=== PATIENT | male | born 1990 | race Two or more races ===

== ENCOUNTER 2020-03-16 09:02 | Inpatient (IN) | payer MEDICARE, OTHER ==
[~2020-03-16] VITALS: Ht 170.2 cm; Wt 59.0 kg
--- NOTE | 2020-03-16 09:10 | NUR ---
MIGUEL RA 79 "was en route to Dialysis- Got really SOB-RA sats 70%, placed on nrb o2 sats went up to 98%. vs checked. hooked on monitor. iv access started on r hand 20, blood draw done. sent to lab
[2020-03-16] MEDS ORDERED: FUROSEMIDE 40 MG/4 ML VIAL IV ONE (09:30)
[2020-03-16] MEDS ORDERED: FUROSEMIDE 40 MG/4 ML VIAL ONE (09:40)
[2020-03-16 10:04] LABS: BASOPHILS # (AUTO) 0.1 /CMM (0.0-0.2); EOSINOPHILS % (AUTO) 2.1 % (0.0-6.0); HEMATOCRIT 36 % (39-51); HEMOGLOBIN 11.7 g/dL (13.5-17.5); LYMPHOCYTES # (AUTO) 0.8 /CMM (0.8-4.8); LYMPHOCYTES % (AUTO) 10.2 % (20.0-44.0); MEAN CORPUSCULAR HGB CONC 33 g/dl (31.0-36.0); MEAN CORPUSCULAR VOLUME 92 fL (80-96); MONOCYTES # (AUTO) 0.2 /CMM (0.1-1.30); MONOCYTES % (AUTO) 2.8 % (2.0-12.0); NEUTROPHILS # (AUTO) 6.9 /CMM (1.8-8.9); NEUTROPHILS % (AUTO) 83.9 % (43.0-81.0); PLATELET COUNT (AUTO) 202 /CMM (150-450); RED BLOOD CELL COUNT(AUTO) 3.86 MIL/uL (4.5-6.0); WHITE BLOOD COUNT (AUTO) 8.2 K/uL (4.3-11.0)
--- NOTE | 2020-03-16 10:07 | NUR ---
placed on hi flow o2 60L/100%. rt by bedside pt satting at 97%
[2020-03-16 10:37] LABS: ALANINE AMINOTRANSFERASE 12 U/L (12-78); ALKALINE PHOSPHATASE 102 U/L (46-116); ASPARTATE AMINOTRANSFERASE 21 U/L (15-37); BILIRUBIN,DIRECT 0.2 mg/dL (0.0-0.2); BILIRUBIN,TOTAL 0.9 mg/dL (0.2-1.0); CALCIUM, SERUM 9.2 mg/dL (8.5-10.1); CARBON DIOXIDE 24 mmol/L (21-32); CHLORIDE 97 mmol/L (98-107); GLUCOSE 127 mg/dL (74-106); POTASSIUM 6.1 mmol/L (3.5-5.1); SODIUM SERUM 138 mmol/L (136-145); TOTAL PROTEIN, SERUM 8.1 g/dL (6.4-8.2)
[2020-03-16 10:48] LABS: CREATININE 12.6 mg/dL (0.6-1.3); UREA NITROGEN, BLOOD 90 mg/dL (7-18)
[2020-03-16] MEDS ORDERED: AMLODIPINE BESYLATE 5 MG TABLET ONE (10:55)
[2020-03-16] MEDS ORDERED: SODIUM BICARBONATE SYR 50 MEQ/50 ML DISP.SYRIN IV ONE (11:00)
[2020-03-16] MEDS ORDERED: MAG HYDROX/AL HYDROX/SIMETH 30 ML UDC PO PRN (11:00)
[2020-03-16] MEDS ORDERED: SODIUM POLYSTYRENE SULFONATE 15 G/60 ML BOTTLE PO ONE (11:00)
[2020-03-16] MEDS ORDERED: MAGNESIUM HYDROXIDE 30 ML UDC PO PRN (11:00)
[2020-03-16] MEDS ORDERED: AMLODIPINE BESYLATE 5 MG TABLET PO ONE (11:00)
[2020-03-16] MEDS ORDERED: Z GUARD REMEDY 2 OZ OINT TP PRN (11:00)
[2020-03-16] MEDS ORDERED: DEXTROSE 50%-WATER 50 ML DISP.SYRIN IV ONE (11:00)
[2020-03-16] MEDS ORDERED: HYDROCODONE/APAP 5/325MG TABLET PO PRN (11:00)
[2020-03-16] MEDS ORDERED: DEXAMETHASONE SOD PHOSPHATE 10 MG/ML VIAL IV SCH (11:00)
[2020-03-16] MEDS ORDERED: ACETAMINOPHEN 325 MG TABLET PO PRN (11:00)
[2020-03-16] MEDS ORDERED: INSULIN REGULAR, HUMAN 100 UNIT/ML 10 ML VIAL IV ONE (11:00)
[2020-03-16] MEDS ORDERED: ZOLPIDEM TARTRATE 5 MG TABLET PO PRN (11:00)
[2020-03-16] MEDS ORDERED: IOHEXOL-350 100 ML VIAL IV ONE (11:26)
[2020-03-16] MEDS ORDERED: IV NS 0.9% 250 ML IV ONE (11:26)
[2020-03-16] MEDS ORDERED: CT SWABBABLE VALVE TRANS SET 1 EA INFUS.SET MC ONE (11:26)
[2020-03-16] MEDS ORDERED: SODIUM POLYSTYRENE SULFONATE 15 G/60 ML BOTTLE ONE (11:28)
[2020-03-16] MEDS ORDERED: SODIUM BICARBONATE SYR 50 MEQ/50 ML DISP.SYRIN ONE (11:28)
[2020-03-16] MEDS ORDERED: DEXTROSE 50%-WATER 50 ML DISP.SYRIN ONE (11:28)
[2020-03-16] MEDS ORDERED: INSULIN REGULAR, HUMAN 100 UNIT/ML 10 ML VIAL ONE (11:29)
--- NOTE | 2020-03-16 11:45 | NUR ---
covid swabs pcr and antigen done sent to lab
--- NOTE | 2020-03-16 12:20 | NUR ---
bp still 191/[address] faust made aware. per pt will need dialysis.
[2020-03-16] MEDS ORDERED: AMLO-213 PO (12:23)
[2020-03-16] MEDS ORDERED: CALC667C6 PO (12:23)
[2020-03-16] MEDS ORDERED: MINO10TA PO (12:23)
[2020-03-16] MEDS ORDERED: LISI40TA4 PO (12:23)
[2020-03-16] MEDS ORDERED: LABE100T5 PO (12:23)
[2020-03-16] MEDS ORDERED: FOLI0.8T23 PO (12:23)
[2020-03-16 12:34] LABS: ABG BASE EXCESS 0.7 mmol/L; ABG OXYGEN SATURATION 97.8 % (92.0-98.5); ABG PH 7.418 (7.350-7.450); ABG PO2 139.5 mmHg (75.0-100.0); AaDO2 533.5 mmHg; COHb 0.6 % (0.5-1.5); MetHb 0.5 % (0.0-1.5); O2Hb 96.7 % (94.0-97.0); SITE, ABG Right Radial; VENT MODE, BG HFNC 15L 100%
[2020-03-16] MEDS ORDERED: ONDANSETRON HCL/PF 4 MG/2 ML VIAL IVP PRN (14:00)
--- NOTE | 2020-03-16 14:03 | NUR ---
pt still unable to provide urine specimen. pt states that he doesnt produce a lot of urine anymore. dr. faust made aware.
--- NOTE | 2020-03-16 14:06 | NUR ---
CALLED NURSING SUP FOR [facility] BED.
[2020-03-16] MEDS ORDERED: LEVOFLOXACIN 750 MG /D5W 150ML 150 ML IV ONE ×2 (14:30)
[2020-03-16] MEDS ORDERED: APIXABAN 2.5 MG TABLET PO SCH (15:00)
[2020-03-16 15:04] LABS: B-TYPE NATRIURETIC PEPTIDE > 70000 PG/ML (0-125)
--- NOTE | 2020-03-16 15:42 | NUR ---
PT IS COVID +
--- NOTE | 2020-03-16 16:57 | NUR ---
NURSING SUP CALLED. PT WILL BE GOING TO ICU ROOM 257. BED WILL BE AVAILABLE AT 1800.
--- NOTE | 2020-03-16 18:30 | NUR ---
i was informed that the pts brother and sister in law was already outisde, and wants to sign pt out ama. i went to speak with the pt, and i asked him if this was true, pt stated, "yeah, im going to [facility], my sister in law works there and her and her boss arranged a bed for me already, so im leaving. ill just sign out ama. i already made up my mind. everything is ready there for my dialysis. my brother and sister in law brought an o2 tank and theyre gonna drive me to [facility]. " i went out to speak with the pts brother and siter edin who were outside waiting and this was indeed the case.
--- NOTE | 2020-03-16 18:35 | NUR ---
called dr. lentz and explained the entire situation. spoke to the pts brother and sister in law as well as the pt the risks consequences and negative outcomes of travelling with the need to be on hi flow o2, and that the pt could easily crash. however, the pt and his family were very addamant about signing ama. this was also witnessed by the er doctor dr. larson who also spoke to the pt and explained the risks. pt is aox4. pt and family were made aware that the pt is covid + and risks for exposure. they understood.
--- NOTE | 2020-03-16 18:40 | NUR ---
pt signed out ama, pts brother also signed and witnessed the pt signing ama. pt left with the o2 tank that the family provided. pt was provided with the [facility] mask because family had brought a nebulizer mask for pt to travel with. i told the pt and the family that iwas going to priint out lab results for them so that they can present this at the hospital that theyre going to but pt and brother stated, 'no its okay. we need to leave. we'll request for it later when we need to." Addendum: 03/16/20 at 1904 by DCABANOS IV removed. Catheter intact and site benign. Pressure and 4x4 applied to site. No bleeding noted.
[2020-03-16 19:05] VITALS: BP 208/134
[2020-03-17] MEDS ORDERED: LEVOFLOXACIN 250 MG /D5W 50 ML 250 MG in PREMIX 1 EA IV SCH (14:00)
--- NOTE | 2020-03-18 12:00 | NUR ---
CALLED AND INFORMED OF (+) PCR COVID RESULT
== END 2020-03-16 18:40 | disposition left against medical advice (07) | DRG 177 ==
LOC: ER 09:18 → TRANSITION 14:00
PROVIDERS: ADMIT Family Medicine; ATTEND Family Medicine
DX: U07.1 COVID-19 (principal); J12.89 Other viral pneumonia; J96.01 Acute respiratory failure with hypoxia; N18.6 End stage renal disease; I21.A1 Myocardial infarction type 2; E87.2 Acidosis; I12.0 Hypertensive chronic kidney disease with stage 5 chronic kidney disease or end stage renal disease; Z99.2 Dependence on renal dialysis; E87.5 Hyperkalemia; D63.8 Anemia in other chronic diseases classified elsewhere; N25.0 Renal osteodystrophy
CPT/HCPCS: 36415; 36600; 71045-TC; 80048-TC; 80076-TC; 82803-TC; 83605-TC; 83880; 84484-TC; 85025-TC; 85730-TC; 86706; 87040-TC; 87081-TC; 87340; A4216; G0378; J1100; J1815; J1940; J1956; J3490; J7050; Q9967; U0003